=== PATIENT | male | born 2000 | race Caucasian/White ===

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

== ENCOUNTER 2023-04-04 09:02 | Emergency (ER) | payer SELFPAY ==
[~2023-04-04] VITALS: Ht 187.9 cm; Wt 83.9 kg
[2023-04-04] MEDS ORDERED: CIPRODEX 0.3%-7.5 ML OT (09:32)
== END 2023-04-04 09:50 | disposition home or self-care (01) ==
LOC: ED 09:02
DX: H10.9 Unspecified conjunctivitis (principal)